=== PATIENT | female | born 1955 | race Caucasian/White ===

== ENCOUNTER → 2022-10-10 | Outpatient (CLI) | payer MEDICARE, OTHER ==
[2022-10-10 14:05] LABS: BASOPHILS # (AUTO) 0.1 X10'3 (0-0.2); BASOPHILS % (AUTO) 1.2 % (0-1); EOSINOPHILS # (AUTO) 0.1 X10'3 (0-0.9); HEMOGLOBIN 12.2 g/dl (12.0-16.0); LYMPHOCYTES # (AUTO) 1.9 X10'3 (1.1-4.8); LYMPHOCYTES % (AUTO) 27.2 % (21-51); MEAN CORPUSCULAR HEMOGLOBIN 29.6 PG (27.0-31.0); MEAN CORPUSCULAR HGB CONC 32.1 g/dL (33.0-36.5); MONOCYTES # (AUTO) 0.7 X10'3 (0-0.9); MONOCYTES % (AUTO) 9.8 % (2-12); NEUTROPHILS # (AUTO) 4.3 X10'3 (1.8-7.7); NEUTROPHILS % (AUTO) 60.8 % (42-75); PLATELET COUNT 573 X10'3 (140-440); RED BLOOD COUNT 4.13 X10'6 (4.20-5.60); RED CELL DISTRIBUTION WIDTH 14.8 % (11.5-14.5); WHITE BLOOD COUNT 7.1 X10'3 (4.5-11.0)
[2022-10-10 14:44] LABS: ALANINE AMINOTRANSFERASE 39 U/L (12-78); ALBUMIN 3.9 G/DL (3.4-5.0); ALBUMIN/GLOBULIN RATIO 1.1 (1.1-1.5); ALKALINE PHOSPHATASE 97 IU/L (46-116); ANION GAP 12 (8-16); ASPARTATE AMINO TRANSFERASE 25 U/L (10-37); BILIRUBIN,TOTAL 0.3 MG/DL (0.1-1.0); BLOOD UREA NITROGEN 10 MG/DL (7-18); BUN/CREATININE RATIO 13.7 (6.6-38.0); CALCIUM 9.3 MG/DL (8.5-10.1); CHLORIDE 100 MMOL/L (99-107); CREATININE 0.73 MG/DL (0.40-0.90); FERRITIN 40 NG/ML (8-252); GLUCOSE 115 MG/DL (70-104); LACTATE DEHYDROGENASE 177 U/L (81-234); POTASSIUM 4.1 MMOL/L (3.5-5.1); SODIUM 136 MMOL/L (135-145); TOTAL CARBON DIOXIDE 23.8 MMOL/L (24-32); TOTAL PROTEIN 7.4 G/DL (6.4-8.2); eGFR 79 ML/MIN
[2022-10-10 14:47] LABS: % IRON SATURATION 13 % (11-46); IRON 49 UG/DL (49-151); TOTAL IRON BINDING CAPACITY 390 UG/DL (259-388)
[2022-10-10 14:53] LABS: TOTAL CELLS COUNTED 100
[2022-10-10 14:54] LABS: PLATELET ESTIMATE INCREASED
[2022-10-10 14:55] LABS: LARGE PLATELETS FEW
== END | disposition home or self-care (01) ==
LOC: LAB 12:57
PROVIDERS: ATTEND Internal Medicine Hematology & Oncology
DX: D47.1 Chronic myeloproliferative disease (principal)
CPT/HCPCS: 80053; 80074; 82232; 82607; 82728; 82784; 83010; 83540; 83550; 83615; 83880; 84466; 84550; 85007; 85025; 85651; 86140; 86334